=== PATIENT | male | born 1965 | race Caucasian/White ===

== ENCOUNTER 2020-10-10 14:01 | Inpatient (IN) | payer OTHER ==
[~2020-10-10] VITALS: Ht 185.4 cm; Wt 99.8 kg
[2020-10-10 15:13] LABS: BASOPHIL 0.5 % (0-2); EOSINOPHIL 0.8 % (0-5); HCT 40.6 % (42.0-52.0); HGB 14.3 g/dl (13.2-18.0); LYMPHOCYTE 19.1 % (15-48); MCH 31.4 pg (25.0-31.0); MCHC 35.2 g/dL (32.0-36.0); MCV 89.2 fL (78.0-100.0); MONOCYTE 11.2 % (0-12); MPV 8.9 fL (6.0-9.5); NEUTROPHIL 67.9 % (41-80); NRBC 0; PLT 275 K/uL (150-400); RBC 4.55 M/uL (4.70-6.00); RDW 11.9 % (11.5-14.0)
[2020-10-10 15:14] LABS: BILIRUBIN NEGATIVE (NEGATIVE); BLOOD NEGATIVE Ery/uL (NEGATIVE); CLARITY CLEAR (CLEAR); COLOR YELLOW (YELLOW); GLUCOSE (U) NORMAL (NORMAL); LEUKOCYTES NEGATIVE Leu/uL (NEGATIVE); NITRITE NEGATIVE (NEGATIVE); PROTEIN NEGATIVE (NEGATIVE); SPECIFIC GRAVITY 1.025 (1.001-1.030); UROBILINOGEN 0.2 mg/dL (0.2-1.0); pH 5.5 (5.0-9.0)
[2020-10-10 15:20] LABS: ALBUMIN 3.4 g/dL (3.4-5.0); BILIRUBIN - TOTAL 0.7 mg/dL (0.2-1.0); BUN/CREAT RATIO (CALC) 19.2 RATIO; CREATININE 1.04 mg/dL (0.67-1.17); GLOBULIN (CALCULATION) 4.1 g/dL; POTASSIUM 3.9 mmol/L (3.5-5.1); TOTAL PROTEIN 7.5 g/dL (6.4-8.2)
[2020-10-10 15:26] LABS: URINARY WBC RARE
[2020-10-10 15:27] LABS: BACTERIA TRACE; URINARY RBC RARE
[2020-10-10] MEDS ORDERED: BUSPIRONE HCL15 MG PO (18:11)
[2020-10-10] MEDS ORDERED: CLONAZEPAM0.5 MG PO (18:11)
[2020-10-10] MEDS ORDERED: ALTACE10 MG PO (18:12)
[2020-10-12 05:27] LABS: BASOPHIL 0.4 % (0-2); EOSINOPHIL 1.9 % (0-5); HCT 39.6 % (42.0-52.0); HGB 13.9 g/dl (13.2-18.0); MCH 31.5 pg (25.0-31.0); MCHC 35.1 g/dL (32.0-36.0); MCV 89.8 fL (78.0-100.0); MONOCYTE 11.4 % (0-12); MPV 8.9 fL (6.0-9.5); NEUTROPHIL 61.8 % (41-80); NRBC 0; PLT 275 K/uL (150-400); RBC 4.41 M/uL (4.70-6.00); RDW 11.9 % (11.5-14.0); WBC 9.2 K/uL (4.0-10.5)
[2020-10-12 05:49] LABS: ALBUMIN 3.3 g/dL (3.4-5.0); BUN/CREAT RATIO (CALC) 10.5 RATIO; CREATININE 1.14 mg/dL (0.67-1.17); GLOBULIN (CALCULATION) 3.6 g/dL; POTASSIUM 4.5 mmol/L (3.5-5.1); TOTAL PROTEIN 6.9 g/dL (6.4-8.2)
[2020-10-13] MEDS ORDERED: AUGMENTIN 875-1 EACH PO (13:58)
== END 2020-10-13 15:00 | disposition home or self-care (01) | DRG 392 ==
LOC: FER 14:01 → FMS 17:17
PROVIDERS: Physician Assistant; ADMIT Internal Medicine
DX: K57.20 Diverticulitis of large intestine with perforation and abscess without bleeding (principal); F41.9 Anxiety disorder, unspecified; R16.1 Splenomegaly, not elsewhere classified; I10 Essential (primary) hypertension; Z20.822 Contact with and (suspected) exposure to COVID-19; Z87.442 Personal history of urinary calculi; Z79.899 Other long term (current) drug therapy; Z98.890 Other specified postprocedural states
CPT/HCPCS: 36415; 80053; 81001; 83605; 84145; 85025; J1650; J2270; J2405; J2543; J3480; J7030; Q9967; U0002